=== PATIENT | male | born 1940 | race Caucasian/White ===

== ENCOUNTER 2020-07-07 08:20 | Outpatient (CLI) | payer OTHER, SELFPAY ==
[2020-07-07 09:42] LABS: Basophils Absolute Auto 0.1 K/mm3 (0.0-0.1); Basophils Percent Auto 1.2 % (0.2-1.2); Eosinophils Absolute Auto 0.6 K/mm3 (0-0.3); Eosinophils Percent Auto 10.1 % (0-4.4); Hematocrit 35.9 % (42.0-52.0); Hemoglobin 12.4 g/dL (14.0-18.0); Immature Granulocyte Absolute 0.01 K/mm3 (0.00-0.031); Immature Granulocyte Percent A 0.2 % (0-0.5); Lymphocytes Absolute Auto 1.17 K/mm3 (0.9-3.2); Lymphocytes Percent Auto 19.5 % (18.3-44.2); Mean Corpuscular HGB Conc 34.5 g/dl (32-36); Mean Corpuscular Hemoglobin 31.3 pg (26-34); Mean Corpuscular Volume 90.7 fl (80-100); Mean Platelet Volume 9.8 fl (7.4-10.4); Monocytes Absolute Auto 0.5 K/mm3 (0.1-0.6); Monocytes Percent Auto 8.8 % (2.6-8.5); Neutrophils Absolute Auto 3.6 K/mm3 (1.3-6.7); Neutrophils Percent Auto 60.2 % (45.5-73.1); Platelet Count Result 145 k/mm3 (150-375); Red Blood Count 3.96 M/mm3 (4.6-6.20); Red Cell Distribution Width 12.4 % (11.5-14.5)
[2020-07-07 09:55] LABS: Hemoglobin A1C 6.8 % (<5.7)
[2020-07-07 09:58] LABS: Alanine Aminotransferase 18 U/L (4-50); Alkaline Phosphatase 48 U/L (38-126); Anion Gap 6 mmol/L (8-16); Aspartate Amino Transferase 27 U/L (17-59); Bilirubin,Total 1.2 mg/dL (0.2-1.3); Blood Urea Nitrogen 24 mg/dL (9-20); Calcium 9.7 mg/dL (8.4-10.2); Carbon Dioxide 27 mmol/L (22-30); Chloride 108 mmol/L (98-107); Cholesterol 93 mg/dL (0-200); Estimated Glomerular Filt Rate 59; Glucose 136 mg/dL (75-110); HDL Direct 30 mg/dL; Potassium 4.5 mmol/L (3.4-5.0); Sodium 141 mmol/L (137-145); Triglycerides 53 mg/dL (<150)
[2020-07-07 10:09] LABS: LDL Cholesterol Direct 49 mg/dL
== END 2020-07-07 08:21 | disposition home or self-care (01) ==
DX: E78.2 Mixed hyperlipidemia (principal); I50.22 Chronic systolic (congestive) heart failure; I10 Essential (primary) hypertension; R73.9 Hyperglycemia, unspecified; H54.415A Blindness right eye category 5, normal vision left eye
CPT/HCPCS: 36415; 80053; 80061; 83036; 84443; 85025

== ENCOUNTER 2021-03-23 08:42 | Outpatient (CLI) | payer OTHER, SELFPAY ==
[2021-03-23 09:08] LABS: Basophils Absolute Auto 0.1 K/mm3 (0.0-0.1); Basophils Percent Auto 1.2 % (0.2-1.2); Eosinophils Absolute Auto 0.5 K/mm3 (0-0.3); Eosinophils Percent Auto 7.8 % (0-4.4); Hematocrit 39.5 % (42.0-52.0); Hemoglobin 13.2 g/dL (14.0-18.0); Immature Granulocyte Absolute 0.02 K/mm3 (0.00-0.031); Immature Granulocyte Percent A 0.3 % (0-0.5); Lymphocytes Absolute Auto 1.11 K/mm3 (0.9-3.2); Lymphocytes Percent Auto 18.8 % (18.3-44.2); Mean Corpuscular HGB Conc 33.4 g/dl (32-36); Mean Corpuscular Hemoglobin 31.1 pg (26-34); Mean Corpuscular Volume 92.9 fl (80-100); Mean Platelet Volume 9.3 fl (7.4-10.4); Monocytes Absolute Auto 0.6 K/mm3 (0.1-0.6); Monocytes Percent Auto 9.7 % (2.6-8.5); Neutrophils Absolute Auto 3.7 K/mm3 (1.3-6.7); Neutrophils Percent Auto 62.2 % (45.5-73.1); Platelet Count Result 130 k/mm3 (150-375); Red Blood Count 4.25 M/mm3 (4.6-6.20); Red Cell Distribution Width 12.8 % (11.5-14.5); White Blood Count 5.9 K/mm3 (4.5-10.0)
[2021-03-23 09:17] LABS: Alanine Aminotransferase 18 U/L (4-50); Albumin Level 4.1 g/dL (3.5-5.1); Alkaline Phosphatase 46 U/L (38-126); Anion Gap 9 mmol/L (8-16); Aspartate Amino Transferase 24 U/L (17-59); Bilirubin,Total 0.8 mg/dL (0.2-1.3); Blood Urea Nitrogen 24 mg/dL (9-20); Calcium 9.8 mg/dL (8.4-10.2); Carbon Dioxide 24 mmol/L (22-30); Chloride 110 mmol/L (98-107); Cholesterol 99 mg/dL (0-200); Estimated Glomerular Filt Rate 53; Glucose 152 mg/dL (75-110); HDL Direct 33 mg/dL; Potassium 4.7 mmol/L (3.4-5.0); Sodium 143 mmol/L (137-145); Triglycerides 51 mg/dL (<150)
[2021-03-23 09:28] LABS: LDL Cholesterol Direct 47 mg/dL
== END 2021-03-23 08:43 | disposition home or self-care (01) ==
LOC: ANHLAB 08:44
DX: R73.03 Prediabetes (principal); I10 Essential (primary) hypertension
CPT/HCPCS: 36415; 80053; 80061; 84443; 85025

== ENCOUNTER 2021-09-05 03:29 | Observation (INO) | payer OTHER, SELFPAY ==
[2021-09-05] VITALS (52 sets, daily range): BP systolic 108–141; BP diastolic 56–83; PULSE 69–88; RESP 14–21; TEMP 36.1–36.4; O2SAT 90–100; BMI 26.6
--- NOTE | ~2021-09-05 | XR_ITS ---
EXAMINATION: XR chest 1V portable INDICATION: Chest pain TECHNIQUE: Portable AP chest at 0356 hours COMPARISON: 11/06/2008 FINDINGS: There are minimal opacities of the lung bases. No pleural effusion or pneumothorax is ident ified. Cardiomegaly is noted. There is a mild diffuse interstitial pattern. No pleural effusion or pn eumothorax is identified. A dual-lead cardiac pacemaker of the left chest wall ends with leads in exp ected locations. IMPRESSION: 1. Minimal airspace opacities of the lung bases, consistent with atelectasis versus pneumonia. 2. Cardiomegaly with possible mild pulmonary edema. Reviewed, dictated and finalized at location A. ENGINEER IMPRESSION: 1. Minimal airspace opacities of the lung bases, consistent with atelectasis ve rsus pneumonia. 2. Cardiomegaly with possible mild pulmonary edema.
--- NOTE | 2021-09-05 03:32 | ECG_ITS ---
Measurements Intervals [place] Rate: 69 P: VA: 0 QRS: 232 QRSD: 189 T: 89 QT: 485 QTc: 523 Interpretive Statements ELECTRONIC VENTRICULAR PACEMAKER WITH INHIBITION BASELINE ARTIFACT- I, II, III, AVL, V1-V3 NO FURTHER INTERPRETATION IS POSSIBLE ATYPICAL ECG Electronically Signed On 09-05-2021 7:18:33 [employer] by Ki Akins D.O.
[2021-09-05 03:54] LABS: Basophils Absolute Auto 0.1 K/mm3 (0.0-0.1); Basophils Percent Auto 1.3 % (0.2-1.2); Eosinophils Absolute Auto 0.4 K/mm3 (0-0.3); Eosinophils Percent Auto 6.1 % (0-4.4); Hematocrit 35.5 % (42.0-52.0); Hemoglobin 12.7 g/dL (14.0-18.0); Immature Granulocyte Absolute 0.02 K/mm3 (0.00-0.031); Immature Granulocyte Percent A 0.3 % (0-0.5); Immature Platelet Fraction Pct 3.9 % (0.9-11.2); Lymphocytes Absolute Auto 0.77 K/mm3 (0.9-3.2); Lymphocytes Percent Auto 11.2 % (18.3-44.2); Mean Corpuscular HGB Conc 35.8 g/dl (32-36); Mean Corpuscular Hemoglobin 32.9 pg (26-34); Mean Platelet Volume 10.6 fl (7.4-10.4); Monocytes Absolute Auto 0.5 K/mm3 (0.1-0.6); Monocytes Percent Auto 7.3 % (2.6-8.5); Neutrophils Absolute Auto 5.1 K/mm3 (1.3-6.7); Neutrophils Percent Auto 73.8 % (45.5-73.1); Platelet Count Result 163 k/mm3 (150-375); Red Blood Count 3.86 M/mm3 (4.6-6.20); Red Cell Distribution Width 12.5 % (11.5-14.5); White Blood Count 6.9 K/mm3 (4.5-10.0)
[2021-09-05 04:04] LABS: Alanine Aminotransferase 16 U/L (4-50); Albumin Level 4.3 g/dL (3.5-5.1); Alkaline Phosphatase 61 U/L (38-126); Anion Gap 9 mmol/L (8-16); Aspartate Amino Transferase 27 U/L (17-59); Bilirubin,Total 1.8 mg/dL (0.2-1.3); Blood Urea Nitrogen 32 mg/dL (9-20); Calcium 10.1 mg/dL (8.4-10.2); Carbon Dioxide 27 mmol/L (22-30); Chloride 105 mmol/L (98-107); Estimated CRCL calculation 40 ml/min; Estimated Glomerular Filt Rate 49; Glucose 197 mg/dL (65-110); INR 1.6; Lipase 52 U/L (23-300); Potassium 4.4 mmol/L (3.4-5.0); Prothrombin Time 18.9 Seconds (11.1-14.7); Sodium 141 mmol/L (137-145)
--- NOTE | 2021-09-05 04:06 | PC.NURSE ---
Pt arrived with ems from home, where he called EMS for chest pain upon awakening. pt took 3x nitro and 81 mg ASA po prior to EMS arrival at home. Once there, EMS administered 243 mg ASA PO and placed a SL to left arm. On arrival in ED, pt denies cp. Placed on monitor and provided with call light. Will continue to monitor.
[2021-09-05 04:16] LABS: Troponin I < 0.012 ng/mL (0.000-0.034)
--- NOTE | 2021-09-05 05:07 | ED.CHESTPAIN ---
HPI - Chest Pain General Chief Complaint: Chest Pain Stated Complaint: chest pain Time Seen by Provider: 09/05/21 03:32 Source: patient and EMS Mode of arrival: EMS History of Present Illness HPI narrative: This is 80 year old male with history CHF, CAD, DC and DM who presents for evaluation of chest pain. He states he woke up with morning with pain across his entire chest. He describes pain has dull ache that lasted for 2 hours. He took 3 nitroglycerin prior to calling EMS. He states his pain initially was not improved by nitro glycerin, but his pain had resolved prior to EMS arrival. EMS gave patient aspirin 324mg. PAtient still denies any chest pain. He thinks his pain was better with sitting up. He denies associated cough, diaphoresis, nausea, vomiting, fever, or chills. He had an DC 40 years ago but denies having any stents. He reports he was found to have blockage on his last cath years ago but no intervention. Related Data Home Medications Medication Instructions Recorded Confirmed apixaban 5 mg tablet 5 mg PO BID tablet 11/13/19 flu vacc [id number](65yr up)PF 180 ml IM 11/13/19 mcg/0.5 mL intramuscular syringe furosemide 40 mg tablet 40 mg PO DAILY tablet 11/13/19 glimepiride 4 mg tablet 8 mg PO DAILY tablet 11/13/19 pneumococcal 23-wilfred ps vaccine 25 0.5 ml IM ml 11/13/19 mcg/0.5 mL injection syringe sacubitril 24 mg-valsartan 26 mg 1 tablet PO BID tablet 11/13/19 tablet spironolactone 25 mg tablet 12.5 mg PO DAILY tablet 11/13/19 Allergies Allergy/AdvReac Type Severity Reaction Status Date / Time Sulfa (Sulfonamide Allergy Mild Rash Verified 09/05/21 04:00 Antibiotics) Review of Systems Review of Systems: All systems reviewed & are unremarkable except as noted in HPI and below PMFSH Past Medical History Medical History (Updated 09/05/21 @ 07:15 by Kellen Ren MD) Benign essential hypertension (~1955) Chronic heart failure with preserved ejection fraction (HFpEF) (~1978) Heart attack (~1978) Hyperlipidemia associated with type 2 diabetes mellitus (~2015) Pacemaker (~2015) Surgical History Surgical History (Updated 11/13/19 @ 09:05 by Clara Multani, ) S/P placement of cardiac pacemaker (~2016) Social History Social History (Updated 11/13/19 @ 08:25 by Mally Augustine [facility]) Smoking packs per day: 2 Smoking cigarettes per day: 40.0 Years smoked: 22 Smoking pack-years: 44.00 Smoking status: Former smoker Tobacco type: cigarettes Smoking end date: 10/10/81 Alcohol intake: never Substance use: never Additional living arrangements comments: Katherine () Gender identity (if verbalized by the patient): Male Exam Const: General: no acute distress and alert Orientation/consciousness: patient oriented x3 Eyes: Pupils: Equal, round and reactive pupils present EOM: EOMs intact bilaterally Chest: Chest palpation & inspection: normal inspection of the chest and no tenderness Resp: Effort & Inspection: normal respiratory effort and no retractions Auscultation: clear to auscultation bilaterally Cardio: Rate: regular rate Rhythm: regular rhythm Heart sounds: no murmurs GI: GI Palp: Yes Soft to palpation, No Tenderness to palpation present (GI) and No Guarding due to palpation present (GI) Auscultation: normal bowel sounds Skin: General skin exam: normal color Rashes: no rashes Neuro: General: patient oriented x3, moves all extremities and CN's II-XI intact bilaterally Extrem: General: normal to inspection Psych: Mental Status: mental status grossly normal Affect: normal affect Course Reevaluation(s) Reevaluation #1: Patient is resting comfortably. I discussed he will be admitted for observation for chest pain r/o DC Date: 09/05/21 Time: 06:15 Consultations Consultation #1: I discussed case with Dr. Dominguez who agrees to consult. PAtient can eat. Date: 09/05/21 Time: 06:00 Consultation #2: I discussed ca
[2021-09-05 07:10] LABS: Troponin I < 0.012 ng/mL (0.000-0.034)
--- NOTE | 2021-09-05 07:24 | PC.NURSE ---
pt sleeping on stretcher. no distress noted.
[2021-09-05 09:55] LABS: Hemoglobin A1C 6.7 % (<5.7)
[2021-09-05 10:04] LABS: Troponin I < 0.012 ng/mL (0.000-0.034)
[2021-09-05 10:07] LABS: Glucose Point of Care 143 mg/dl (65-105)
--- NOTE | 2021-09-05 10:07 | ADMGEN ---
This patient, Mohan Velazquez, was admitted to IMU Room 211-01. Patient/family oriented to hospital policies and general routines including ID bracelet, bed and alarms, visiting hours, pain management, procedures, bathroom and other care routines, personal items, smoking policy, room service/diet, and visiting hours. Information on how to activate the Rapid Response Team has been discussed. Patient/Family are encouraged to report perceived risks to care and to ask questions if they do not understand what they are told or what they should do.
[2021-09-05] MEDS: ASPIRIN 81 MG CHEWABLE TABLET PO (13:15)
[2021-09-05] MEDS: GLIMEPIRIDE 2 MG TABLET 8 MG PO (13:16)
[2021-09-05] MEDS: FUROSEMIDE 40 MG TABLET PO (13:16)
[2021-09-05] MEDS: ATORVASTATIN 40 MG TABLET PO (13:16)
[2021-09-05] MEDS: ISOSORBIDE MONONITRATE 30 MG TAB.ER.24H PO (13:17)
[2021-09-05 13:23] LABS: Glucose Point of Care 160 mg/dl (65-105)
--- NOTE | 2021-09-05 13:25 | PM.CNCAR ---
Assessment and Plan Additional Plan unstable angina, Hx of HFrEF ischemic cardiomyopathy, AF, ICD in place, plan [facility] on tuesday, ASA, hold eliquis for strating tomorrow, statin, entresto, coreg, imdur, lasix History of Present Illness History of Present Illness Consult date/time: 09/05/21 13:25 Consult reason: chest pain Reason For Visit: chest pain,cardiomyopathy Narrative: 80 yrs old male with HX of CHF and DM, presented with acute chest pain starte yesterday morning lasted for 2 hours, diffuse aching pain across chest, non radiating, Pain was 9/10, with N/V. He had prior cath Review of Systems Review of Systems: All systems reviewed & are unremarkable except as noted in HPI and below PMFSH Past Medical History Medical History (Updated 09/05/21 @ 07:15 by Kellen Ren MD) Benign essential hypertension (~1955) Chronic heart failure with preserved ejection fraction (HFpEF) (~1978) Heart attack (~1978) Hyperlipidemia associated with type 2 diabetes mellitus (~2015) Pacemaker (~2015) Surgical History Surgical History (Updated 11/13/19 @ 09:05 by Clara MultaniMD) S/P placement of cardiac pacemaker (~2015) Family History Family History (Updated 09/05/21 @ 10:29 by Toya Byrd RN) Other Unknown family medical history Social History Social History (Updated 11/13/19 @ 08:25 by Mally Augustine CMA) Smoking packs per day: 1 Smoking cigarettes per day: 20.0 Years smoked: 20 Smoking pack-years: 20.00 Smoking status: Former smoker Tobacco type: cigarettes Smoking end date: 10/10/81 Alcohol intake: never Substance use: never Additional living arrangements comments: Katherine () Gender identity (if verbalized by the patient): Male Spiritual care concerns: No Meds Home Medications and Allergies Home Medications Medication Instructions Recorded Confirmed Type apixaban 5 mg tablet 5 mg PO BID tablet 11/13/19 09/05/21 History furosemide 40 mg tablet 40 mg PO DAILY tablet 11/13/19 09/05/21 History glimepiride 4 mg tablet 8 mg PO DAILY tablet 11/13/19 09/05/21 History sacubitril 24 mg-valsartan 26 mg 1 tablet PO BID tablet 11/13/19 09/05/21 History tablet atorvastatin 40 mg tablet 40 mg PO DAILY #90 tablet 04/17/20 09/05/21 Rx carvedilol 25 mg tablet 25 mg PO BID #180 tablet 05/15/20 09/05/21 Rx aspirin 81 mg PO DAILY 09/05/21 09/05/21 History isosorbide mononitrate 30 mg PO DAILY 09/05/21 09/05/21 History nitroglycerin 0.4 mg SUBLINGUAL PRN 09/05/21 09/05/21 History Allergies Allergy/AdvReac Type Severity Reaction Status Date / Time Sulfa (Sulfonamide Allergy Mild Rash Verified 09/05/21 04:00 Antibiotics) Vital Signs Vital Signs - 24 hr 09/05/21 03:31 09/05/21 03:35 09/05/21 03:48 Temperature 36.1 C L Pulse Rate 71 70 70 Respiratory Rate 18 18 Blood Pressure 141/75 H 131/83 Pulse Oximetry 96 98 09/05/21 04:00 09/05/21 04:01 09/05/21 04:16 Temperature Pulse Rate 72 70 73 Respiratory Rate 17 18 18 Blood Pressure 129/71 126/67 Pulse Oximetry 96 96 94 09/05/21 04:17 09/05/21 04:30 09/05/21 04:31 Temperature Pulse Rate 71 72 70 Respiratory Rate 17 20 17 Blood Pressure 117/68 Pulse Oximetry 95 97 09/05/21 04:45 09/05/21 04:46 09/05/21 05:00 Temperature Pulse Rate 71 72 70 Respiratory Rate 18 18 17 Blood Pressure 117/67 115/68 Pulse Oximetry 97 97 95 09/05/21 05:01 09/05/21 05:15 09/05/21 05:16 Temperature Pulse Rate 70 70 71 Respiratory Rate 17 15 19 Blood Pressure 116/63 Pulse Oximetry 95 95 95 09/05/21 05:17 09/05/21 05:30 09/05/21 05:31 Temperature Pulse Rate 72 70 70 Respiratory Rate 18 20 18 Blood Pressure 125/79 Pulse Oximetry 95 99 98 09/05/21 05:45 09/05/21 05:46 09/05/21 05:47 Temperature Pulse Rate 70 70 74 Respiratory Rate 20 20 20 Blood Pressure 116/72 Pulse Oximetry 90 100 95 09/05/21 06:00 09/05/21 06:01 09/05/21 06:15 Archie
--- NOTE | 2021-09-05 15:55 | PM.IMHP ---
H&P: HPI History of Present Illness Date/Time: 09/05/21 15:55 ED-HPI narrative: This is 80 year old male with history CHF, CAD, LA and DM who presents for evaluation of chest pain. He states he woke up with morning with pain across his entire chest. He describes pain has dull ache that lasted for 2 hours. He took 3 nitroglycerin prior to calling EMS. He states his pain initially was not improved by nitro glycerin, but his pain had resolved prior to EMS arrival. EMS gave patient aspirin 324mg. PAtient still denies any chest pain. He thinks his pain was better with sitting up. He denies associated cough, diaphoresis, nausea, vomiting, fever, or chills. He had an LA 40 years ago but denies having any stents. He reports he was found to have blockage on his last cath years ago but no intervention. 09/05/2021 interval history patient is 80-year-old male with history of ischemic cardiomyopathy ICD in placed, presented with complaint of chest pain patient 3 sets of cardiac enzymes are negative, just with driver supervisor due to patient's history of ischemic cardiomyopathy patient may need left-sided cardiac catheterization for further evaluation and further recommendation to follow will continue to monitor. Chief Complaint: chest pain Review of Systems Review of Systems: All systems reviewed & are unremarkable except as noted in HPI and below PMFSH Past Medical History Medical History (Updated 09/05/21 @ 07:15 by Kellen Ren MD) Benign essential hypertension (~1955) Chronic heart failure with preserved ejection fraction (HFpEF) (~1978) Heart attack (~1978) Hyperlipidemia associated with type 2 diabetes mellitus (~2015) Pacemaker (~2015) Surgical History Surgical History (Updated 11/13/19 @ 09:05 by Clara MultaniMD) S/P placement of cardiac pacemaker (~2015) Family History Family History (Updated 09/05/21 @ 10:29 by Toya Byrd RN) Other Unknown family medical history Social History Social History (Updated 11/13/19 @ 08:25 by Mally Augustine CMA) Smoking packs per day: 1 Smoking cigarettes per day: 20.0 Years smoked: 20 Smoking pack-years: 20.00 Smoking status: Former smoker Tobacco type: cigarettes Smoking end date: 10/10/81 Alcohol intake: never Substance use: never Additional living arrangements comments: Katherine () Gender identity (if verbalized by the patient): Male Spiritual care concerns: No Meds Home Medications and Allergies Home Medications Medication Instructions Recorded Confirmed Type apixaban 5 mg tablet 5 mg PO BID tablet 11/13/19 09/05/21 History furosemide 40 mg tablet 40 mg PO DAILY tablet 11/13/19 09/05/21 History glimepiride 4 mg tablet 8 mg PO DAILY tablet 11/13/19 09/05/21 History sacubitril 24 mg-valsartan 26 mg 1 tablet PO BID tablet 11/13/19 09/05/21 History tablet atorvastatin 40 mg tablet 40 mg PO DAILY #90 tablet 04/17/20 09/05/21 Rx carvedilol 25 mg tablet 25 mg PO BID #180 tablet 05/15/20 09/05/21 Rx aspirin 81 mg PO DAILY 09/05/21 09/05/21 History isosorbide mononitrate 30 mg PO DAILY 09/05/21 09/05/21 History nitroglycerin 0.4 mg SUBLINGUAL PRN 09/05/21 09/05/21 History Allergies Allergy/AdvReac Type Severity Reaction Status Date / Time Sulfa (Sulfonamide Allergy Mild Rash Verified 09/05/21 04:00 Antibiotics) Vital Signs Vital Signs - 24 hr 09/05/21 03:31 09/05/21 03:35 09/05/21 03:48 Temperature 97.0 F L Pulse Rate 71 70 70 Respiratory Rate 18 18 Blood Pressure 141/75 H 131/83 Pulse Oximetry 96 98 09/05/21 04:00 09/05/21 04:01 09/05/21 04:16 Temperature Pulse Rate 72 70 73 Respiratory Rate 17 18 18 Blood Pressure 129/71 126/67 Pulse Oximetry 96 96 94 09/05/21 04:17 09/05/21 04:30 09/05/21 04:31 Temperature Pulse Rate 71 72 70 Respiratory Rate 17 20 17 Blood Pressure 117/68 Pulse Oximetry 95 97 09/05/21 04:45 09/05/21 04:46 09/05/21 05:00 Temper
[2021-09-05] MEDS: SACUBITRIL/VALSARTAN 24-26 MG TABLET 1 TAB PO (17:14)
[2021-09-05] MEDS: APIXABAN 5 MG TABLET PO (17:14)
[2021-09-05] MEDS: carvediloL 25 MG TABLET PO (20:23)
[2021-09-05 20:34] LABS: Glucose Point of Care 207 mg/dl (65-105)
[2021-09-06] VITALS (9 sets, daily range): BP systolic 117–127; BP diastolic 70–96; PULSE 70–85; RESP 14–18; TEMP 36.4–37.1; O2SAT 96–98
[2021-09-06 01:55] LABS: Hematocrit 31.6 % (42.0-52.0); Hemoglobin 11.1 g/dL (14.0-18.0); Mean Corpuscular HGB Conc 35.1 g/dl (32-36); Mean Corpuscular Hemoglobin 32.3 pg (26-34); Mean Corpuscular Volume 91.9 fl (80-100); Mean Platelet Volume 9.6 fl (7.4-10.4); Platelet Count Result 112 k/mm3 (150-375); Red Blood Count 3.44 M/mm3 (4.6-6.20); Red Cell Distribution Width 12.7 % (11.5-14.5); White Blood Count 4.8 K/mm3 (4.5-10.0)
[2021-09-06 02:05] LABS: Anion Gap 5 mmol/L (8-16); Blood Urea Nitrogen 25 mg/dL (9-20); Calcium 9.2 mg/dL (8.4-10.2); Carbon Dioxide 26 mmol/L (22-30); Chloride 108 mmol/L (98-107); Estimated CRCL calculation 46 ml/min; Estimated Glomerular Filt Rate 58; Glucose 133 mg/dL (65-110); Magnesium 1.8 mg/dL (1.6-2.3); Potassium 3.4 mmol/L (3.4-5.0); Sodium 139 mmol/L (137-145)
[2021-09-06] MEDS: ASPIRIN 81 MG CHEWABLE TABLET PO (08:10)
[2021-09-06] MEDS: ATORVASTATIN 40 MG TABLET PO (08:11)
[2021-09-06] MEDS: GLIMEPIRIDE 2 MG TABLET 8 MG PO (08:11)
[2021-09-06] MEDS: FUROSEMIDE 40 MG TABLET PO (08:11)
[2021-09-06] MEDS: carvediloL 25 MG TABLET PO (08:11)
[2021-09-06] MEDS: SACUBITRIL/VALSARTAN 24-26 MG TABLET 1 TAB PO (08:12)
[2021-09-06] MEDS: ISOSORBIDE MONONITRATE 30 MG TAB.ER.24H PO (08:12)
[2021-09-06 08:27] LABS: Glucose Point of Care 103 mg/dl (65-105)
[2021-09-06] MEDS: POTASSIUM CHLORIDE 20 MEQ TABLET 40 MEQ PO (08:47)
--- NOTE | 2021-09-06 11:45 | PM.PNCARD ---
Progress Note: A&P Additional Plan unstable angina, Hx of HFrEF ischemic cardiomyopathy, AF, ICD in place, negative troponin * 3, plan Patient refused LHC after discussion fo risk/benefits, ASA, resume eliquis, statin, entresto, coreg, imdur, lasix, can be discharged to cardiology clinic Subjective Date/time seen: 09/06/21 11:45 Interval history: no acute events tele: A-fib paced V rhythm, NSVT Review of Systems Review of Systems: All systems reviewed & are unremarkable except as noted in HPI and below Exam Const: General: comfortable and no acute distress Other: Able to lie flat HENMT: General nose exam: Normal nares present and no epistaxis Mouth: Yes moist mucous membranes Eyes: Sclera: sclerae normal Pupils: Equal, round and reactive pupils present Neck: Neck: supple and no JVD Carotids: no bruits Resp: Auscultation: clear to auscultation bilaterally and lung sounds not diminished Other: No chest wall tenderness Cardio: Rate: regular rate Rhythm: regular rhythm Heart sounds: no gallops, no murmurs and no rubs GI: Auscultation: normal bowel sounds Skin: General skin exam: normal color, rashes and/or lesions noted and no erythema Other: Warm Neuro: Cranial nerves: Yes Equal, round and reactive pupils present Speech: normal speech Other: No obvious focal deficit or facial asymmetry Extrem: General: no edema Other: Normal capillary refills Intact distal pulses. Objective Data Vital Signs Vital Signs: Vital Signs - 24 hr 09/05/21 12:00 09/05/21 14:00 09/05/21 16:00 Temperature 36.4 C Pulse Rate 72 71 77 Respiratory Rate 14 Blood Pressure 117/79 Pulse Oximetry 97 09/05/21 18:00 09/05/21 20:00 09/05/21 20:23 Temperature 36.1 C L Pulse Rate 70 70 70 Respiratory Rate 16 Blood Pressure 112/58 L Pulse Oximetry 98 09/05/21 22:00 09/05/21 23:40 09/06/21 00:00 Temperature 36.3 C L Pulse Rate 70 70 70 Respiratory Rate 18 Blood Pressure 111/65 Pulse Oximetry 95 09/06/21 02:00 09/06/21 04:00 09/06/21 06:00 Temperature 37.1 C Pulse Rate 72 72 71 Respiratory Rate 18 Blood Pressure 127/96 H Pulse Oximetry 98 09/06/21 08:00 09/06/21 08:11 09/06/21 10:00 Temperature 36.4 C L Pulse Rate 70 76 70 Respiratory Rate 16 Blood Pressure 117/70 Pulse Oximetry 96 09/06/21 11:41 Temperature 37.0 C Pulse Rate 85 Respiratory Rate 14 Blood Pressure 124/75 Pulse Oximetry 97 Intake/Output Intake/Output: Intake & Output 09/03/21 09/04/21 09/05/21 09/06/21 23:59 23:59 23:59 23:59 Intake Total 700 900 Output Total 450 Balance 700 450 Meds/Results Medications: Active Medications Generic Name Dose Route Start Last Admin Trade Name Freq PRN Reason Stop Dose Admin Apixaban 5 mg 09/05/21 17:00 09/06/21 08:09 Apixaban 5 Mg Tablet PO Not Given BID KRIS Aspirin 81 mg 09/05/21 09:00 09/06/21 08:10 Aspirin 81 Mg Chewable Tablet PO 81 mg DAILY KRIS Administration Atorvastatin Calcium 40 mg 09/05/21 09:00 09/06/21 08:11 Atorvastatin 40 Mg Tablet PO 40 mg DAILY KRIS Administration Carvedilol 25 mg 09/05/21 21:00 09/06/21 08:11 Carvedilol 25 Mg Tablet PO 25 mg Q12HR KRIS Administration Dextrose 12.5 gm 09/05/21 07:48 Dextrose 50% 25 Gm/50 Ml Syringe IV PUSH PRN PRN Hypoglycemia Protocol Furosemide 40 mg 09/05/21 09:00 09/06/21 08:11 Furosemide 40 Mg Tablet PO 40 mg DAILY KRIS Administration Glimepiride 8 mg 09/05/21 09:00 09/06/21 08:11 Glimepiride 2 Mg Tablet PO 8 mg DAILY KRIS Administration Glucagon 1 mg 09/05/21 07:48 Glucagon For Inj 1 Mg Vial IM PRN PRN Hypoglycemia Protocol Glucose 15 gm 09/05/21 07:48 Glucose Oral Gel 15 Gm Of Glucse In 37.5 Gm Tube PO PRN PRN Hypoglycemia Protocol Dextrose 1,000 mls @ 100 mls/hr 09/05/21 07:48 Dextrose 5% 1,000 Ml IVPB PRN PRN Hypoglycemi
[2021-09-06 13:06] LABS: Glucose Point of Care 178 mg/dl (65-105)
--- NOTE | 2021-09-06 13:25 | PM.DS ---
DS: Admitting Diagnosis Discharge Date 09/06/2021 Admitting Diagnosis chest pain DS: Discharge Diagnosis Discharge Diagnosis (1) Chest pain: Code(s): R07.9 - Chest pain, unspecified Status: Acute Assessment and Plan: 09/05/21 15:55 ED-HPI narrative: This is 80 year old male with history CHF, CAD, NM and DM who presents for evaluation of chest pain. He states he woke up with morning with pain across his entire chest. He describes pain has dull ache that lasted for 2 hours. He took 3 nitroglycerin prior to calling EMS. He states his pain initially was not improved by nitro glycerin, but his pain had resolved prior to EMS arrival. EMS gave patient aspirin 324mg. PAtient still denies any chest pain. He thinks his pain was better with sitting up. He denies associated cough, diaphoresis, nausea, vomiting, fever, or chills. He had an NM 40 years ago but denies having any stents. He reports he was found to have blockage on his last cath years ago but no intervention. 09/05/2021 interval history patient is 80-year-old male with history of ischemic cardiomyopathy ICD in placed, presented with complaint of chest pain patient 3 sets of cardiac enzymes are negative, just with administrative support assistant due to patient's history of ischemic cardiomyopathy patient may need left-sided cardiac catheterization for further evaluation and further recommendation to follow will continue to monitor. (2) BPH (benign prostatic hyperplasia): Code(s): N40.0 - Benign prostatic hyperplasia without lower urinary tract symptoms Status: Acute Assessment and Plan: will continue home regimen and monitor (3) Chronic heart failure with preserved ejection fraction (HFpEF): Onset Date: ~1978 Code(s): I50.32 - Chronic diastolic (congestive) heart failure Status: Acute Assessment and Plan: patient with history of ischemic cardiomyopathy and congestive heart failure currently patient appears euvolemic (4) Benign essential hypertension: Onset Date: ~1955 Code(s): I10 - Essential (primary) hypertension Status: Acute Assessment and Plan: will continue home regimen and monitor DS: Summary Hospital Course Reason for hospitalization: ED-HPI narrative: This is 80 year old male with history CHF, CAD, NM and DM who presents for evaluation of chest pain. He states he woke up with morning with pain across his entire chest. He describes pain has dull ache that lasted for 2 hours. He took 3 nitroglycerin prior to calling EMS. He states his pain initially was not improved by nitro glycerin, but his pain had resolved prior to EMS arrival. EMS gave patient aspirin 324mg. PAtient still denies any chest pain. He thinks his pain was better with sitting up. He denies associated cough, diaphoresis, nausea, vomiting, fever, or chills. He had an NM 40 years ago but denies having any stents. He reports he was found to have blockage on his last cath years ago but no intervention. 09/05/2021 interval history patient is 80-year-old male with history of ischemic cardiomyopathy ICD in placed, presented with complaint of chest pain patient 3 sets of cardiac enzymes are negative, just with administrative support assistant due to patient's history of ischemic cardiomyopathy patient may need left-sided cardiac catheterization for further evaluation and further recommendation to follow will continue to monitor. Chief Complaint: chest pain Hospital Course: 09/05/2021 interval history patient is 80-year-old male with history of ischemic cardiomyopathy ICD in placed, presented with complaint of chest pain patient 3 sets of cardiac enzymes are negative, just with administrative support assistant due to patient's history of ischemic cardiomyopathy patient may need left-sided cardiac catheterization for further evaluation and further recommendation to follow will continue to monitor. today patient seen by Cardiology recommended cardiac catheterization
== END 2021-09-06 14:20 | disposition home or self-care (01) ==
LOC: ANHED 07:15 → ANHIMU 12:52
PROVIDERS: Admitting Provider Internal Medicine; Emergency Provider General Practice; PCP Emergency Medicine; Visit Provider Family Medicine
DX: R07.9 Chest pain, unspecified (principal); I11.0 Hypertensive heart disease with heart failure; I50.32 Chronic diastolic (congestive) heart failure; I25.2 Old myocardial infarction; I25.10 Atherosclerotic heart disease of native coronary artery without angina pectoris; E11.9 Type 2 diabetes mellitus without complications; Z79.84 Long term (current) use of oral hypoglycemic drugs; Z95.0 Presence of cardiac pacemaker; Z87.891 Personal history of nicotine dependence; Z79.4 Long term (current) use of insulin
CPT/HCPCS: 36415; 71045; 80048; 80053; 82948; 83036; 83690; 83735; 84484; 85025; 85027; 85055; 85610; 85730; 93005; 99285; A9270; G0378